=== PATIENT | female | born 1945 | race Two or more races ===

== ENCOUNTER 2023-12-16 10:56 | Emergency (ER) | payer OTHER ==
[~2023-12-16] VITALS: Ht 162.6 cm; Wt 71.2 kg
[2023-12-16] MEDS ORDERED: LIPITOR20 MG PO (11:23)
[2023-12-16] MEDS ORDERED: LEVO-T75 MCG PO (11:23)
[2023-12-16] MEDS ORDERED: TOPROL XL50 M1 PO (11:23)
[2023-12-16] MEDS ORDERED: HORIZANT300 MG PO (11:24)
[2023-12-16] MEDS ORDERED: NORVASC10 MG PO (11:24)
[2023-12-16] MEDS ORDERED: ZESTORETIC 20-1 EAC1 PO (11:24)
[2023-12-16] MEDS ORDERED: ORPHENADRINE CITRATE 30 MG/ML AMPUL IM STA (13:38)
[2023-12-16 14:16] LABS: HEMATOCRIT 39.8 % (36.0-45.00); HEMOGLOBIN 13.5 g/dL (12.0-15.00); MEAN CELL VOLUME 98.2 fL (80.00-100.00); MEAN CORPUSCULAR HEMOGLOBIN 33.4 pg (27.00-32.0); PLATELET COUNT 220 K/uL (150-450); RED BLOOD COUNT 4.06 M/uL (4.00-6.00)
[2023-12-16 14:26] LABS: URINE APPEARANCE Clear; URINE BILIRRUBIN Negative (NEGATIVE); URINE BLOOD Trace; URINE COLOR Yellow; URINE GLUCOSE Negative (NEGATIVE); URINE KETONE Negative (NEGATIVE); URINE LEUKOCYTE Negative; URINE NITRATE Negative; URINE PROTEIN Negative (NEGATIVE); URINE UROBILINOGEN 0.2 E.U./dl
[2023-12-16 14:28] LABS: URINE BACTERIA 478.3 uL (0.0-1933); URINE EPITHELIAL CELLS 50.9 uL (0.0-38.8); URINE RBC 8.5 uL (0.0-20.8); URINE WBC 3.3 uL (0.0-23.2)
[2023-12-16 14:34] LABS: CALCIUM 10.6 mg/dL (8.5-10.1); CREATININE SERUM 0.75 mg/dL (0.55-1.02); GFR 74.54; POTASSIUM 3.77 mEq/L (3.5-5.1)
[2023-12-16] MEDS ORDERED: KETOROLAC TROMETHAMINE 30 MG VIAL IM STA (16:29)
== END 2023-12-16 16:39 | disposition home or self-care (01) ==
LOC: ER 10:56
PROVIDERS: General Practice
DX: R55 Syncope and collapse (principal); M54.31 Sciatica, right side
CPT/HCPCS: 36415; 70450; 71046; 96372; 99284; J1885; J2360